=== PATIENT | female | born 1975 | race Asian ===

== ENCOUNTER → 2024-04-23 08:26 | Outpatient (REF) | payer OTHER, SELFPAY | LOC: HWRAD 08:26 | PROVIDERS: ATTENDING PHYSICIAN Nurse Practitioner Primary Care; FAMILY PHYSICIAN Family Medicine | DX: D75.839 Thrombocytosis, unspecified (principal); E61.1 Iron deficiency; D50.0 Iron deficiency anemia secondary to blood loss (chronic) | CPT/HCPCS: 76700 ==

== ENCOUNTER 2025-04-28 19:47 | Inpatient (IN) | payer OTHER, SELFPAY ==
[2025-04-28] VITALS (14 sets, daily range): BP systolic 86–119; BP diastolic 64–83; BMI 28.4
[2025-04-28 12:55] LABS: Glucose - Point of Care 223 mg/dl (70-99)
--- NOTE | 2025-04-28 13:24 | ED.GENMED ---
History of Present Illness
General
Chief Complaint: Cold/Flu/URI Symptoms
Time Seen by Provider: 04/28/25 13:04
History of Present Illness
History of Present Illness:
FOCUSED PAST MEDICAL HISTORY
- High blood pressure, hyperlipidemia, diabetes
REVIEW OF OLD RECORDS
- The patient had EGD which showed esophagitis with no bleeding in 2021
Note:
CHIEF COMPLAINT(S)
Vomiting and generalized weakness.
HISTORY OF PRESENT ILLNESS
The patient is a 50-year-old female who presents with vomiting and a feeling of weakness. She reports receiving influenza and COVID vaccinations on Sunday. By Sunday morning, she started experiencing feverish sensations, while Sundays symptoms
included fatigue, chills, and sweating. On Sunday, she awoke with back spasms, and last night she experienced multiple episodes of vomiting, both at 4 a.m. and again during a visit to her physicians office at 12:25 p.m. She reports poor oral intake.
The patient notes that while she currently feels weak, the nausea has subsided. She is diabetic but does not regularly monitor her blood glucose levels. Additionally, the patient mentioned not taking her blood pressure medication today.
CHRONIC MEDICAL CONDITIONS SIGNIFICANTLY AFFECTING CARE
The patient has a history of diabetes.
PHYSICAL EXAM
- General: The patient appears generally weak, initial systolic blood pressure of 86
- HEENT: Moist oral mucosa
- Cardiovascular: No murmurs, normal heart rate, regular rhythm, No chest wall tenderness
- Pulmonary: No respiratory distress, breath sounds are clear and equal
- Abdomen: Soft with no peritoneal signs, no tenderness
- Neurologic: Excellent strength all extremities, no coordination deficits
- Psychiatric: Appropriate mental status, normal insight and judgement
- Extremities: Nontender, no edema, moves all extremities equally
- Skin: No rash, no lesions
PROBLEM LIST
Acute: Vomiting, generalized weakness, back spasms, chills, and sweating.
Chronic: Diabetes.
PLAN
1. Initiate intravenous fluid therapy to address dehydration.
2. Administer antiemetic medication to manage vomiting.
3. Monitor blood pressure closely and consider medication adjustment if hypotension persists.
DIFFERENTIAL DIAGNOSIS
The Differential Diagnosis includes, in no particular order and is not limited to:
1. Viral gastroenteritis
2. Dehydration
3. Hypoglycemia
4. Influenza
5. COVID-19 infection
6. Medication side effects
7. Acute kidney injury due to dehydration
8. Diabetic ketoacidosis
9. Viral upper respiratory tract infection
10. Post-vaccination reaction
RADIOLOGY
- CT shows fatty liver, mild colitis, mild intramural edema in the gallbladder wall
EKG
- Chest x-ray negative
LABS
- White count 13.7, hemoglobin 12.2, sodium 130, glucose 208, A1c 7.9, creatinine 1.4 which is nearly tripled what it was before; lactic 3.7
UPDATE
-SUMMARY OF ENCOUNTER
The patient was seen in the emergency department with symptoms suggestive of an infection, including elevated white blood cell count and kidney function impairment. A CT scan revealed possible inflammation of the ascending colon near the
gallbladder. The patient has a history of fever with unclear etiology, and kidney function issues noted in a prior visit. Intravenous fluids were administered to address kidney function. The possibility of a urinary tract infection was considered,
and antibiotics were prescribed. Given the patients history and current findings, a decision was made to admit the patient for overnight observation.
DISPOSITION
Admit
ASSESSMENT
The patient presents with probable infection, with inflammation noted on CT imaging and elevated white blood cell count suggestive of an inflammatory or infectious process.
EMERGENCY TREATMENTS ADMINISTERED
Intravenous fluids were administered to improve kidney function. Antibiotics were started to manage the suspected infection.
PLAN
Admit for overnight observation to monitor response to treatment and further evaluate potential underlying causes of symptoms. Consider adding a tick-borne disease panel to explore any possible tick-borne illness.
INDEPENDENT REVIEW OF LABS AND INTERPRETATION OF TESTS
My independent review of the CBC indicates leukocytosis. The review of the renal function shows impaired kidney function compared to previous records.
MEDICATION RECONCILIATION
Antibiotics administered for suspected urinary tract infection.
MEDICAL DECISION MAKING
- Complexity of Data Reviewed: Chronic conditions affecting care. Differential diagnosis includes viral gastroenteritis, dehydration, hypoglycemia, influenza, COVID-19 infection, medication side effects, acute kidney injury due to dehydration,
diabetic ketoacidosis, viral upper respiratory tract infection, and post-vaccination reaction.
- Data:
Category 1
- My independent interpretation of the CT scan shows inflammation of the ascending colon near the gallbladder.
Category 3
- Discussion of management with an infectious disease specialist was considered to determine the appropriate antibiotic regimen.
DIAGNOSIS
- Sepsis
- Acute kidney injury, unspecified (N17.9)
- Inflammation of the ascending colon (K52.9)
Past History
Past History
ED Past Medical History: None
Social History
Personal:
Living: with family
Phy Exam
Physical Exam
Physical Exam:
See HPI
Course
Orders/Labs/Results
Orders:
Orders
04/28/25 13:04
0.9% Sodium Chloride 1000 ml [Nss] 1,000 ml IV BOLUS
04/28/25 13:05
0.9% Sodium Chloride 1000 ml [Nss] 1,000 ml IV BOLUS
04/28/25 13:36
Ondansetron Injectable [Zofran] 4 mg IV NOW STA
CR Chest - 2 Views Urgent
Comment:
Reason For Exam: fevers hypotension
04/28/25 13:38
Complete Blood Count/With Diff Urgent
Comprehensive Metabolic Panel Urgent
HCG, Serum Qualitative Screen Urgent
Comment: ADD ON
Hemoglobin A1c [Glycohemoglobin (HgbA1c)] Urgent
Lactic Acid Q4H
Comment: CANCEL 2nd LACTIC ACID IF 1st LACTIC ACID IS LESS THAN 2
Lipase Urgent
Manual Differential Urgent
Blood Culture Q30M
ERON Source: Blood/Venous
Specimen Description:
04/28/25 14:23
COVID-19 Antigen Urgent
Source: Nasal Swab
Influenza A+B Rapid Molecular Urgent
ERON Source: Nasal Swab
Specimen Description:
04/28/25 14:31
Blood Culture Q30M
ERON Source: Blood/Venous
Specimen Description:
04/28/25 16:00
Add On- LAB Urgent
Tests Added?: hcg screen
04/28/25 16:01
CT Abd/pelvis W Iv Cont Urgent
Comment:
Reason For Exam: sepsis, N/V, f/c
04/28/25 16:44
Lactic Acid Q4H
Comment: CANCEL 2nd LACTIC ACID IF 1st LACTIC ACID IS LESS THAN 2
Urinalysis Reflex To Culture Urgent
Date Specimen was Collected: 04/28/25
Time Specimen was Collected: 16:03
Urine Microscopic Reflex Cult Urgent
Urine Culture Urgent
ERON Source: U
Specimen Description:
Date Specimen was Collected: 04/28/25
Time Specimen was Collected: 16:03
04/28/25 18:36
0.9% Sodium Chloride 1000 ml [Nss] 1,000 ml IV BOLUS
04/28/25 18:37
0.9% Sodium Chloride 250 ml [Nss] 250 ml IV BOLUS
04/28/25 18:40
CefTRIAXone [Rocephin] 1,000 mg IV NOW STA
04/28/25 18:44
Hepatitis A IgM Antibody Urgent
Hepatitis B Core Ab, IgM Urgent
Hepatitis B Surface Antibody Urgent
Hepatitis B Surface Antigen Urgent
Hepatitis C Antibody Urgent
04/28/25 18:47
Add On- LAB Urgent
Tests Added?: ehrlichiosis, babesiosis, lyme, anaplasmosis
04/28/25 19:22
US Abdomen Complete/Upper Urgent
Comment:
Reason For Exam: gallbladder wall edema
04/28/25 19:26
Ehrlichia/Anaplasma by PCR [S] Routine
Comment: [facility] #[id number]
Lyme Progressive Routine
Blood Parasites Routine
ERON Source: B
Specimen Description:
04/28/25 19:28
Piperacillin/Tazo 3.375 Gram [Zosyn] 3.375 gram in 50 ml IV NOW
Abnormal Lab Results
04/28/25 04/28/25 04/28/25
12:53 13:38 16:44
WBC 13.7 H 10^3/uL
(4.8-10.8)
MCHC 31.8 L g/dL
(33.0-37.0)
Abs Neuts (Manual) 12.8 H 10^3/uL
(1.4-6.5)
Band Neutrophils 25 H %
(0-3)
Lymphocytes (Manual) 1 L %
(20-51)
Monocytes (Manual) 1 L %
(2-9)
Sodium 130 L mmol/L
(135-145)
Chloride 93 L mmol/L
(98-107)
BUN 23 H mg/dl
(7-17)
Creatinine 1.4 H mg/dL
(0.6-1.0)
Glucose 208 H mg/dl
(70-99)
Hemoglobin A1c 7.9 H %
(4.0-5.6)
Lactic Acid 3.7 H mmol/L 2.8 H mmol/L
(0.7-2.0) (0.7-2.0)
Total Bilirubin 1.9 H mg/dl
(0.2-1.3)
AST 126 H U/L
(14-36)
ALT 104 H U/L
(0-35)
Ur Occult Blood Reflex 2+ A
(Negative)
Urine WBC (Reflex) 30-40 A /HPF
(0-5)
Urine Bacteria (Reflex) Moderate A
(Negative)
Urine Yeast Moderate A
(Negative)
Urine Albumin (Reflex) 1+ A
(Neg - Trace)
POC Glucose 223 H mg/dl
(70-99)
04/28/25 13:38
04/28/25 13:38
Vital Signs
Initial and Last Documented VS:
Initial Vital Signs
Temp Pulse Resp BP Pulse Ox
36.4 C 89 18 97/64 100
04/28/25 12:44 04/28/25 12:44 04/28/25 12:44 04/28/25 12:44 04/28/25 12:44
Last Documented Vital Signs
Temp Pulse Resp BP Pulse Ox
37.0 C 86 20 119/82 99
04/28/25 18:51 04/28/25 18:51 04/28/25 18:51 04/28/25 18:51 04/28/25 18:51
*Pulse Oximetry
SaO2: 100
Oxygen Mode of Delivery: Room air
Patient hypoxic: no
*Critical Care Note
Total Time (30-74mins, 75-104mins- exclusive of procedures): Not Applicable
ED Attending Note
-
Portions of this chart may have been created with voice recognition software.� Occasional wrong word or��sound alike� substitutions may have occurred due to the inherent limitations of voice recognition software.
Discharge Plan
Departure
Patient Disposition: Admit
Date of Disposition: 04/28/25
Time of Disposition: 18:43
Presentation/result/management discussed w/ accepting MD/DO: Hospitalist
Discharge Problem:
Sepsis
Prescriptions:
No Action
Hydroxychloroquine
200 mg PO DAILY
metformin 500 MG tablet
500 mg PO BID@0800,1700
hydrochlorothiazide 25 MG tablet
25 mg PO DAILY
atorvastatin 10 mg Tablet
10 mg PO DAILY
irbesartan 150 mg Tablet
150 mg PO DAILY
Referrals:
Queenie Coley DO [Family Provider, Internal Medicine]
Interventions
Interventions:
*Risk Screen - Suicide Last Done: 04/28/25 12:42
*General Assessment Last Done: 04/28/25 12:44
*Neglect/Abuse Screening Last Done: 04/28/25 14:12
*ED- Fall Risk Assessment Last Done: 04/28/25 14:12
*ED COVID-19 Vaccine History Last Done: 04/28/25 14:12
*ED Influenza Vaccine History Last Done: 04/28/25 14:12
ED- Pulmonary Assessment Last Done: 04/28/25 14:12
Discharge Date and Time
Print Language: SLOVAK
[2025-04-28] MEDS: NSS 1000 IV ×3 (14:15→20:58)
[2025-04-28 14:16] LABS: Hematocrit 38.4 % (37.0-47.0); Hemoglobin 12.2 g/dL (12.0-16.0); Mean Corp Hgb Conc. 31.8 g/dL (33.0-37.0); Mean Corpuscular Volume 86.9 fL (81.0-99.0); Platelet Count 292 10^3/uL (130-400); Red Cell Dist. Width 13.4 % (11.5-14.5)
[2025-04-28 14:22] LABS: ALT (SGPT) 104 U/L (0-35); AST (SGOT) 126 U/L (14-36); Albumin 3.9 g/dl (3.5-5.0); Alkaline Phosphatase 60 U/L (38-126); Blood Urea Nitrogen 23 mg/dl (7-17); Calcium 9.1 mg/dl (8.4-10.2); Carbon Dioxide 28 mmol/L (22-30); Chloride 93 mmol/L (98-107); Estimated Creatinine Clearance 45 ml/min; Glucose 208 mg/dl (70-99); Lipase 49 U/L (23-300); Potassium 4.0 mmol/L (3.5-5.1); Sodium 130 mmol/L (135-145); Total Protein 6.8 g/dl (6.3-8.2); eGFR 46.12
[2025-04-28] MEDS: ZOFRAN 4 MG IV (14:26)
[2025-04-28 15:01] LABS: Glycohemoglobin (HgbA1c) 7.9 % (4.0-5.6)
[2025-04-28 15:07] LABS: COVID-19 Antigen Negative (Negative)
[2025-04-28 15:19] LABS: Absolute Neutrophils -Man Diff 12.8 10^3/uL (1.4-6.5)
[2025-04-28 15:23] LABS: Normal RBC Morphology Yes; Platelets Checked Yes; Total Cells Counted 100
[2025-04-28 16:57] LABS: Urine Character Clear (Clear)
[2025-04-28 17:16] LABS: Urine Squamous Cell 21-25 /LPF (Few)
[2025-04-28 17:17] LABS: Urine Red Blood Cell 0-2 /HPF (0-2); Urine White Cell 30-40 /HPF (0-5)
[2025-04-28 17:20] LABS: HCG, Serum Qualitative Screen Negative
[2025-04-28] MEDS: ROCEPHIN 1000 MG IV (18:44)
[2025-04-28] MEDS: NSS 250 IV (18:44)
--- NOTE | 2025-04-28 18:55 | HPS.HSE ---
Addendum entered and electronically signed by Briana Galo MD 04/28/25 21:37:
This is an addendum to H&P written by Kavitha Holloway on 04/28/2025. �Patient seen and examined independently with AUTHORIZATION MANAGER.
50-year-old female past medical history of rheumatoid arthritis, diabetes, hypertension, presenting with vomiting and weakness. �Developed chills and sweating and fatigue for past 2 to 3 days. �Received COVID-vaccine 4 days ago. �Multiple episodes
of vomiting. �No diarrhea.
Vital signs show heart rate up to 113.
Labs show leukocytosis. �Sodium of 130. �Creatinine of 1.4. �Blood sugar 208. �Lactic acid 3.7. �Mild transaminitis in 100s. �Urinalysis shows 30-[address] abdomen pelvis shows severe diffuse hepatic steatosis and mild hepatomegaly. �Mild intramural edema in the gallbladder wall. �Mild colitis in the ascending colon. �Chest x-ray shows no acute process.
Patient with sepsis secondary to likely acute cholecystitis, less likely ascending colitis. N.p.o., IV fluids, Zosyn, check abdominal ultrasound. �General surgery consulte. Hepatitis serologies pending. �CAROLYN secondary to sepsis and prerenal GI
losses. �Hold nephrotoxic medications and diabetic medications.
Original Note:
Family Physician
-
Family Physician: Queenie Coley DO
Chief Complaint
-
Fever, chills, right upper quadrant pain, hypotension
History of Present Illness
50-year-old female complaining of vomiting and weakness. She reports receiving influenza and COVID vaccinations on Sunday 4 days ago. The next day Sunday morning she started to experience feverish sensations. She reports going to a mandaeism with
her family where they ate the same meal no one else became sick., However she felt worse when she came home began to lay in bed. She developed worsening fatigue, chills, sweating on Sunday. Yesterday she awoke with back spasms in the thoracic
area and in the evening experienced multiple episodes of vomiting continuing into today. She reports being seen yesterday evening telehealth told to take Advil and Tylenol which she vomited up. She went to her PCP this morning around 1140 and was
sent to ER for evaluation. In the ER she presented with blood pressure of 86/68, WBC 13 with 25% bandemia, CT showing gallbladder wall edema, ascending colitis and hepatic steatosis. She has past medical history of hypertension, hyperlipidemia DM
2, rheumatoid arthritis, bacteremia of unclear source 2020
Medical History
Past Medical History
Past Medical History: Reports Other
Additional Past Medical History:
hypertension
hyperlipidemia
DM
rheumatoid arthritis.
Past Surgical History: Reports
Social History
Tobacco: Non-smoker
Alcohol: None
Personal:
Living: With Family
Employment: Employed
Family History
Family History: Not pertinent
Allergies / Home Medications
Allergies reflects when Allergies were last updated in [employer].
Home Medications with original date entered in [employer]
Allergy/Medication List:
Allergies
Allergy/AdvReac Type Severity Reaction Status Date / Time
No Known Allergies Allergy Verified 04/28/25 12:45
Home Medications
Hydroxychloroquine 200 mg PO DAILY Autoimmune disorder 06/06/16
hydrochlorothiazide 25 mg tablet 25 mg PO DAILY Blood pressure 02/11/21
metformin 500 mg tablet 500 mg PO BID@0800,1700 Diabetes 02/11/21
atorvastatin 10 mg tablet 10 mg PO DAILY 04/28/25
irbesartan 150 mg tablet 150 mg PO DAILY 04/28/25
Review of Systems
-
History Source: Patient
A 12 point ROS was completed and negative except as noted: Yes
Constitutional: Reports Fever, Fatigue and Chills
EENT: Denies Sore Throat or Mouth Swelling
Respiratory: Denies Cough or Trouble Breathing
Cardiac: Denies Chest Pain, Diaphoresis, Palpitations or Syncope
Abdomen/GI: Reports Abdominal Pain (Right upper quadrant), Nausea and Vomiting; Denies Diarrhea or Constipated
: Denies Dysuria, Frequency, Flank Pain, Incontinence or Difficulty Voiding
Musculoskeletal: Denies Joint Pain
Skin: Denies Itching or Rash
Neurological: Reports Weakness; Denies Dizzy or Headache
Endocrine: Reports No Symptoms
Hematologic/Lymphatic: Reports No Symptoms
Psych: Reports Calm
Physical Exam
Vital Signs
Vital Signs
Temp Pulse Resp BP Pulse Ox
98.6 F 86 20 119/82 99
04/28/25 18:51 04/28/25 18:51 04/28/25 18:51 04/28/25 18:51 04/28/25 18:51
Physical Exam
General: Conversant, Pain and Chills
HEENT: NormoCephalic, Anicteric, Moist mucous membranes, PERRLA, Muniz Conjunctivae and No Ptosis
Respiratory: Clear; No Wheezes, Rales or Rhonchi
Cardiac: S1/S2 and Regular Rhythm; No Murmur, Rub, Gallop or Peripheral Edema
Breast: Deferred by me
GI: Soft, Non Distended and Tender (ruq)
Rectal: Deferred by Provider
Genito-urinary: Deferred by me
Musculoskeletal: No Clubbing, No Cyanosis and No Edema
Skin: Warm and Dry; No Rash
Neuro: AO x 3, No Motor Deficits and Nonfocal/grossly intact; No No Sensory Deficits, Slurred Speech, Facial Droop, Tremors or Sedated
Psych: Calm
Laboratory Results
-
04/28/25 13:38
04/28/25 13:38
Laboratory Results
Lactic Acid 2.8 mmol/L (0.7-2.0) H 04/28/25 16:44
Total Bilirubin 1.9 mg/dl (0.2-1.3) H 04/28/25 13:38
AST 126 U/L (14-36) H 04/28/25 13:38
ALT 104 U/L (0-35) H 04/28/25 13:38
Alkaline Phosphatase 60 U/L (38-126) 04/28/25 13:38
Lipase 49 U/L (23-300) 04/28/25 13:38
Impression/Plan
-
Impression/plan:
Admit to IMU
#Septic shock secondary to Acute choleycystitis with less likely ascending colon colitis
WBC 13.7 with 25% bandemia, HR 104, 99.1, lactic acid 2.8
BP 86/60> 106/79 post 2.5 L IV NSS
-Hold irbesartan 150 mg daily due to hypotension
Patient reports history of hep B vaccination AprilMay 2021, October 2021
-- Iv Zosyn
-IV zofran , phenergen breakthru vomiting
- Iv NSS 100 cc/hr
-blood cultures X2
- Will keep patient n.p.o.
-IV Offermev of as patient spiked 101 temp at 2120
- Consult surgery Dr. Russell aware
CT abdomen pelvis with IV contrast:
1. SEVERE DIFFUSE HEPATIC STEATOSIS and mild hepatomegaly.
2. Mild intramural edema in the gallbladder wall.
3. Mild colitis in the ascending colon.
4. 2.3 cm partially collapsed corpus luteal cyst in the right ovary.
5. 1.4 cm leiomyoma in the uterine fundus.
6. Moderate discogenic degenerative disease and facet joint arthrosis at L4/L5.
#CAROLYN 2/2 to GI losses
Creat 1.4/bun 23 prior 0.58 06/27/2021
-Hold HCTZ, metformin 500 mg twice daily
#Transaminitis likely secondary to diffuse hepatic steatosis
AST 126, ALT 104 will follow CMP
-Hepatitis panel pending
-Hold atorvastatin in setting of transaminitis
#Hyponatremia�mild
NA 130
follow cmp
#DM 2
HgbA1c 7.9
-Hold metformin in setting of CAROLYN
-Accu-Cheks with SSI
#Rheumatoid arthritis
Continue Plaquenil
#HLD
Hold atorvastatin 10 mg daily in setting of transaminitis
DVT prophylaxis
Subcu heparin
Full code
[2025-04-28] MEDS: ZOSYN 50 IV (19:46)
[2025-04-28] MEDS: HEPARIN 5000 UNITS SC (20:57)
[2025-04-28] MEDS: OFIRMEV 100 IV (22:24)
[2025-04-28 22:39] LABS: Glucose - Point of Care 125 mg/dl (70-99)
[2025-04-28] MEDS: PLAQUENIL 200 MG PO (23:16)
--- NOTE | 2025-04-28 23:23 | PTCARENOTE ---
Received pt from ED via stretcher. AAOx3; diaphoretic, flushed skin. Febrile on arrival. Skin fully intact. No c/o nausea at this time; strict NPO per orders. Notified TANK SHOP SUPERVISOR of temperature of 101.0 but not able to take PO Tylenol (per NPO
orders). Ofirmev ordered and administered. NSS running at 100 ml/hr. Resting in bed with call chavez in reach.
[2025-04-29] VITALS (24 sets, daily range): BP systolic 82–159; BP diastolic 50–100
--- NOTE | 2025-04-29 02:18 | DOWNTIME ---
There was a [employer] Client Transition Specialist Downtime on 04/29/2025 from 0100 to 04/29/2025 at 0215. Downtime documentation of patient's care, including medication administrations, has been reconciled in the electronic record per guidelines. Refer to the
patient's paper chart under the miscellaneous tab to see printed paper medication records and downtime forms.
[2025-04-29] MEDS: ZOSYN 50 IV ×4 (03:02→19:46)
[2025-04-29 06:33] LABS: Hematocrit 34.9 % (37.0-47.0); Hemoglobin 11.4 g/dL (12.0-16.0); Mean Corp Hgb Conc. 32.7 g/dL (33.0-37.0); Mean Corpuscular Volume 86.2 fL (81.0-99.0); Platelet Count 288 10^3/uL (130-400); Red Cell Dist. Width 13.5 % (11.5-14.5)
[2025-04-29 06:48] LABS: ALT (SGPT) 141 U/L (0-35); AST (SGOT) 123 U/L (14-36); Albumin 3.0 g/dl (3.5-5.0); Alkaline Phosphatase 64 U/L (38-126); Blood Urea Nitrogen 14 mg/dl (7-17); Calcium 8.5 mg/dl (8.4-10.2); Carbon Dioxide 27 mmol/L (22-30); Chloride 104 mmol/L (98-107); Estimated Creatinine Clearance 104 ml/min; Glucose 128 mg/dl (70-99); HDL Cholesterol 28 mg/dl; LDL Cholesterol, Calculated 38 mg/dl; Potassium 3.2 mmol/L (3.5-5.1); Sodium 135 mmol/L (135-145); Total Protein 5.6 g/dl (6.3-8.2); Very Low Density Lipoprotein 28 mg/dl (0-30); eGFR > 60.00
[2025-04-29] MEDS: NSS 1000 IV ×2 (08:10→18:11)
[2025-04-29 08:11] LABS: Absolute Neutrophils -Man Diff 10.3 10^3/uL (1.4-6.5)
[2025-04-29] MEDS: HEPARIN SC ×3 (08:11→19:53)
[2025-04-29 08:12] LABS: Normal RBC Morphology Yes; Platelets Checked Yes; Total Cells Counted 100
[2025-04-29] MEDS: PLAQUENIL 200 MG PO ×2 (08:12→12:51)
--- NOTE | 2025-04-29 08:45 | W.PN.HOSP.TC ---
Today's Communication/Plan
-
IV fluids. IV antibiotics.
Assessment / Plan
Assessment / Plan
Physical exam:
General: Acutely ill
HEENT: Normocephalic, Atraumatic and Dry Mucous Membranes
Respiratory: Clear to Auscultation; Negative Wheezes, Rales or Rhonchi
Cardiac: Regular Rhythm and S1/S2
GI: Soft, tender and Nondistended
Musculoskeletal: No Clubbing, No Cyanosis and No Edema
Neuro: Awake, Alert and Oriented, no neurological deficit
Psych: Calm
A/P:
Suspected septic shock (could have been also hypovolemic shock):
GI versus source vs ?? Vaccines immune reaction
Seen CT scan of the abdomen and ultrasound
Continue IV antibiotics, IV Zosyn
Continue IVF
Follow-up cultures
Surgery consulted and started on clear liquid diet
GI consult as recommended by surgery
WBC 13.7--> 12.9
CAROLYN:
Improving
Continue IV fluid
Avoid nephrotoxic
Monitor renal function in a.m.
Hyponatremia:
Improving
Rheumatoid arthritis:
Continue hydroxychloroquine-changed to 400 mg alternating with 200 mg every other day and she takes it at home.
Elevated LFTs:
Continue to trend
Diabetes mellitus:
Insulin sliding scale
Hold all oral hypoglycemics
Update hemoglobin A1c
Hypertension:
Hold antihypertensive due to hypotension
Hyperlipidemia:
Hold statin
DVT prophylaxis:
Heparin SQ
Code status:
Full code
Total time spent on today's encounter was 52 minutes which included time spent in counseling the patient/family regarding diagnosis and treatment plan as listed above, goals of care, and symptom management. Case was discussed with nursing staff,
specialists, and care coordinators/case management. All labs and imaging personally reviewed by me. Remainder the time spent in detailed review of previous records, lab data, imaging, and other medical provider documentation.
Anticipated Discharge: > 48 hours
Subjective/Interval History
-
Date of Service: April 29, 2025
Patient with less nausea, no vomitting. Still c/o abd pain. Afebrile
Objective Data
-
Labs:
Laboratory Results
04/29/25
06:07
WBC 12.9 H
Hgb 11.4 L
Hct 34.9 L
Plt Count 288
Sodium 135
Potassium 3.2 L
Chloride 104
Carbon Dioxide 27
BUN 14
Creatinine 0.6
Glucose 128 H
Calcium 8.5
Total Bilirubin 1.3
AST 123 H
ALT 141 H
Alkaline Phosphatase 64
Vital Signs:
Vital Signs
Temp Pulse Resp BP Pulse Ox
100.0 F 103 30 104/67 97
04/29/25 08:25 04/29/25 00:00 04/29/25 00:00 04/29/25 00:00 04/29/25 08:30
[2025-04-29] MEDS: KCL ELIXIR 40 MEQ PO (11:35)
--- NOTE | 2025-04-29 11:59 | CON.GS ---
Consultation
-
Date/Time Consultation Performed: 04/29/25
Requesting Provider: Amie
Performing Provider: Drew
Reason for Consultation: imaging findings
Medical History
-
Chief Complaint: n/v
History of Present Illness:
Pt with acute onset flu like symptoms that began a day after receiving flu and covid shots. Began with nausea, progressed to vomiting and weakness. Low grade temps at home with sweats and chills. Back pain developed after this, she is unsure if 2/2
chronic back issue and prolonged bedrest by that point. She denies abd pain at any point. Had been taking ibuprofen and tylenol at home with some improvement. CT showed some fluid about the gb prompting GS consultation. She has RA and takes
hydroxychloroquine
Past Medical History
Past Medical History: Other (hypertension hyperlipidemia DM rheumatoid arthritis.)
Social History
Tobacco: Non-Smoker
Alcohol: None
Personal:
Living: With Family
Employment: Employed
Family History
Family History: Reviewed & Noncontributory
Allergies / Home Medications
Allergy/AdvReac Type Severity Reaction Status Date / Time
No Known Allergies Allergy Verified 04/28/25 12:45
�Medication �Instructions �Recorded �Confirmed �Type
Hydroxychloroquine 200 mg PO DAILY Autoimmune disorder 06/06/16 04/28/25 History
hydrochlorothiazide 25 mg tablet 25 mg PO DAILY Blood pressure 02/11/21 04/28/25 History
metformin 500 mg tablet 500 mg PO BID@0800,1700 Diabetes 02/11/21 04/28/25 History
atorvastatin 10 mg tablet 10 mg PO DAILY High Cholesterol 04/28/25 04/28/25 History
irbesartan 150 mg tablet 150 mg PO DAILY Blood Pressure 04/28/25 04/28/25 History
Review of Systems
-
A 10 point review of systems was completed, and was negative except as per HPI.
Physical Exam
Vital Signs
Temp Pulse Resp BP Pulse Ox
99.3 F 95 27 116/80 97
04/29/25 11:17 04/29/25 09:00 04/29/25 09:00 04/29/25 08:00 04/29/25 09:11
04/28/25 04/29/25 04/30/25
06:59 06:59 06:59
Actual Weight 70.307 kg
Body Mass Index (BMI) 28.4
Lab Results
04/29/25 06:07
04/29/25 06:07
WBC 12.9 10^3/uL (4.8-10.8) H 04/29/25 06:07
Hgb 11.4 g/dL (12.0-16.0) L 04/29/25 06:07
Hct 34.9 % (37.0-47.0) L 04/29/25 06:07
Plt Count 288 10^3/uL (130-400) 04/29/25 06:07
Physical Exam
General: Well Developed, Well Nourished and No Apparent Distress
HEENT: Normocephalic and Anicteric
GI: Soft, Non Distended and Tender (mild epigastric ttp)
Musculoskeletal: No Clubbing and No Cyanosis
Skin: Warm and Other (diaphoretic)
Neuro: AO x 3
Psych: Calm
Data Reviewed
-
CT Scan: Image Personally Visualized and interpreted, Report Reviewed by me, Discussed with Physician and Discussed with Patient
Ultrasound: Image Personally Visualized and interpreted, Report Reviewed by me and Discussed with Patient
Labs: Labs Reviewed by me and Discussed with Patient
Assessment / Plan
-
50F with suspected vaccine reaction
101.7F Tmax, otherwise VSS
WBC trending down
Mild elevation AST/ALT
CT with mild edema surrounding gallbladder, US with no gallstones, no stigmata of ACC
Plan:
No indication nor plan for surgical intervention
Rec ID consult
Consider GI consult if n/v does not improve
Pls call with ?s
[2025-04-29 12:08] LABS: Hepatitis B Surface Antigen Negative (Negative)
--- NOTE | 2025-04-29 12:36 | PTCARENOTE ---
pt tolerating clear liquid diet. pt did not want am heparin dose and stated she will increase mobility. ambulated around unit x 5 . bp stable and pt denies weakness or dizziness. denies nausea. no complaints at this time. sinus rythym on monitor.
sats in 90s on room air. pt occasionally has dry cough.
[2025-04-29 12:57] LABS: Hepatitis C Antibody Negative (Negative)
--- NOTE | 2025-04-29 14:30 | CON.GI ---
Consultation
-
Date/Time Consultation Requested: 04/29/25
Date/Time Consultation Performed: 04/29/25
Requesting Provider: Dr. Lujan
Performing Provider: Dr. Palomino
Reason for Consultation: Colitis, elevated LFTs
Medical History
Chief Complaint / HPI
Chief Complaint: N/V, sepsis
History of Present Illness:
Edwin Ortega is a 50 y.o. female with pmhx RA, DM2, HTN admitted with 2-3 days of chills, N/V and generalized weakness found to be septic, source unclear at this time. She reports getting both the influenza and COVID vaccines on Sunday, otherwise,
no travel or sick contacts. C/f GI source due to imaging findings of mild colitis in the ascending colon. She denies any abdominal pain or diarrhea. She reports last BM was yesterday, was a normal, well-formed stool. Currently, she is feeling much
better than upon admission. She follows outpatient with Dr. Singer, had a history for DAVID in 2022 which was unremarkable for GI source of anemia.
WBC 13.7 --> 12.9
Lactate 2.8 --> 1.6
Tbili 1.3 AST 123, ALT 141, Alk phos 64
UA 2+ blood, 30-40 WBCs
HAV IgM pending
HBsAg neg, HBcAb IgM pending, HBsAb indeterminate, HCV Ab neg
CT A/P showed severe diffuse hepatic steatosis and mild hepatomegaly. Mild intramural edema in the GB wall. Mild colitis in the ascending colon.
Past Medical History
Past Medical History: HTN, Hypercholesterolemia, NIDDM and Other (rheumatoid arthritis)
Past Surgical History: Other ()
Social History
Tobacco: Non-Smoker
Alcohol: None
Living: With Family
Family History
Family History: Reviewed & Not Pertinent
Allergies / Home Medications
Allergy/AdvReac Type Severity Reaction Status Date / Time
No Known Allergies Allergy Verified 04/28/25 12:45
�Medication �Instructions �Recorded
Hydroxychloroquine 200 mg PO DAILY Autoimmune disorder 06/06/16
hydrochlorothiazide 25 mg tablet 25 mg PO DAILY Blood pressure 02/11/21
metformin 500 mg tablet 500 mg PO BID@0800,1700 Diabetes 02/11/21
atorvastatin 10 mg tablet 10 mg PO DAILY High Cholesterol 04/28/25
irbesartan 150 mg tablet 150 mg PO DAILY Blood Pressure 04/28/25
Review of Systems
-
History Source: Patient
All other systems: A 12 pt ROS was Negative except as stated above in HPI
Vital Signs
Temp Pulse Resp BP Pulse Ox
99.3 F 95 27 116/80 97
04/29/25 11:17 04/29/25 09:00 04/29/25 09:00 04/29/25 08:00 04/29/25 09:11
Physical Exam
Exam
General: Well Developed, Well Nourished and No Apparent Distress
GI: Soft, Non Tender, Non Distended and Normal Bowel Sounds
Results
WBC 12.9 10^3/uL (4.8-10.8) H 04/29/25 06:07
Hgb 11.4 g/dL (12.0-16.0) L 04/29/25 06:07
Hct 34.9 % (37.0-47.0) L 04/29/25 06:07
MCV 86.2 fL (81.0-99.0) 04/29/25 06:07
Plt Count 288 10^3/uL (130-400) 04/29/25 06:07
Sodium 135 mmol/L (135-145) 04/29/25 06:07
Potassium 3.2 mmol/L (3.5-5.1) L 04/29/25 06:07
Chloride 104 mmol/L (98-107) 04/29/25 06:07
Carbon Dioxide 27 mmol/L (22-30) 04/29/25 06:07
BUN 14 mg/dl (7-17) 04/29/25 06:07
Creatinine 0.6 mg/dL (0.6-1.0) 04/29/25 06:07
Calcium 8.5 mg/dl (8.4-10.2) 04/29/25 06:07
Total Bilirubin 1.3 mg/dl (0.2-1.3) 04/29/25 06:07
AST 123 U/L (14-36) H 04/29/25 06:07
ALT 141 U/L (0-35) H 04/29/25 06:07
Alkaline Phosphatase 64 U/L (38-126) 04/29/25 06:07
Lipase 49 U/L (23-300) 04/28/25 13:38
Hep Bs Antibody Indeterminate 04/28/25 18:44
Hepatitis C Antibody Negative (Negative) 04/28/25 18:44
Diagnostic Image Results:
Prior GI Procedures:
EGD: Upper endoscopy May 2022 LA grade a esophagitis, 1 cm hiatal hernia, stomach normal biopsies taken, duodenum normal, biopsies taken. Biopsies showed normal small bowel, minimal chronic inflammation with no H. pylori in the stomach.
Recommend to start omeprazole 40 daily.
Colonoscopy: Colonoscopy November 2021 terminal ileum normal. 3 hyperplastic 7 sessile polyps in the rectum, sigmoid, transverse colon 1 to 2 mm in size removed with jumbo. Internal hemorrhoids medium grade 1. Pathology showed transverse colon polyp
tubular adenoma other 2 were hyperplastic. Recall recommended 7 years.
Capsule July 2022 normal.
Assessment / Plan
-
50 y.o. female admitted with sepsis like picture, unclear source. CT showing mild colitis in the ascending colon but no sx consistent with this finding.
-symptomatically improving
-on broad spectrum abx
-no N/V currently; denies any abdominal pain or diarrhea at any point. I do not feel this 'colitis' is her source of current presentation as clinically, this does not correlate
-LFTs improving, unclear baseline LFTs, has fatty liver, f/u remaining hepatitis labs and infectious studies; possibly elevated in setting of sepsis vs. DILI vs. autoimmune given history of RA
-BCx NGTD; parasite smear prelim neg
-Fatty liver-- prior fibroscan 04/2021 with no fibrosis, should have repeat fibrosis assessment as outpatient, need to see where her baseline LFTs are
Data Reviewed
-
Old Records: Reviewed
-
-
Thank you for consultation and allowing me to participate in the patient's care. Please call the tongue and groove machine feeder GI physician during the after hours with any questions or concerns.
[2025-04-29] MEDS: TYLENOL 650 MG PO (14:53)
--- NOTE | 2025-04-29 16:35 | CM ---
Initial Assessment Completed By CARRIE Peterson.
Patient lives independently in a 2 Story House with bathroom on both levels, uses No DME, No Respiratory devices, No past VN/PT. and No Inpatient Rehab, only Outpatient years ago.
PCP: Amrita Coley
Pharmacy: [facility]
Patient has transportation home when ready. PLAN: Anticipate Home No Needs
[2025-04-29] MEDS: NOVOLOG FLEXPEN-LOW RESISTANCE SC (17:19)
[2025-04-29 17:29] LABS: Glucose - Point of Care 108 mg/dl (70-99)
--- NOTE | 2025-04-29 17:51 | CON.ID ---
Consultation
-
Date/Time Consultation Requested: 04/29/2025 1612
Date/Time Consultation Performed: 04/29/2025 1700
Requesting Provider: Dr. Lujan
Performing Provider: Dr. Miranda
Reason for Consultation: Fever
Chief Complaint / Past History
History of Present Illness
Edwin Pichardo is a 50-year-old female being evaluated at the request of Dr. Irene in regards to fever. History is obtained from chart review, along with patient interview. Additional history was obtained from the patient's sister who was present
in the room.
The patient has an underlying history of rheumatoid arthritis (maintained on hydroxychloroquine), DM and fatty liver disease. She reports she was in her usual state of health until approximately 5 days ago when she received the flu and COVID
immunizations. The next day she reported a low-grade fever along with some chills and overall felt exhausted. She spent all of the next day in bed with fatigue. 2 days ago she reports she felt a little bit better, but developed some back spasms
and was taking Tylenol and Advil. Later in the evening she developed episodes of vomiting. The next day (yesterday) she saw her PCP, and continued with vomiting and ultimately was sent to the ER. Workup in the ER revealed leukocytosis with
significant bandemia. She was started on empiric antibiotics. Last evening she developed a fever to 101.7 degrees.
At this time she reports she is feeling slightly better with decreased chills. She denies any headache. She notes some prior sinusitis symptomatology which has now improved.
She denies any recent travel. She notes late last week she was at her alevism where she ate food with her daughter and some other people. No other family developed illness.
Past History
Additional Past Medical History:
RA
DM
HTN
HLD
Fatty liver disease
Additional Past Surgical History:
Allergy History:
No Known Allergies Allergy (Verified 04/28/25 12:45)
Medications Reviewed: Yes
Current Antibiotics:
Zosyn 3.375 gm IV q6h
Social History
Tobacco: Non-Smoker
Alcohol: None
Drug: None
Personal:
Living: With Family
Employment: Employed
Family History
Family History: Not Pertinent
Review of Systems
Vital Signs
Temp Pulse Resp BP Pulse Ox
99.4 F 95 27 116/80 97
04/29/25 17:00 04/29/25 09:00 04/29/25 09:00 04/29/25 08:00 04/29/25 09:11
Physical Exam
Physical Exam
Constitutional: No Acute Distress, Well Developed, Comfortable and Non-toxic
Head: Normocephalic
Eyes: Pupils Equal, Pupils Round, No Conjunctival Hemorrhage and Sclera Anicteric
Oral: No Thrush and No Ulcers
Cardiovascular: Regular Rate and S1/S2; Negative S3/S4
Pulmonary: Clear; Negative Wheezes, Rales or Rhonchi
Gastrointestinal: Soft, Non Tender, Non Distended, Normal Bowel Sounds, No Rebound and No Guarding
Genito-Urinary: Negative CVA Tenderness
Extremities: Edema; Negative Cyanosis or Erythema
Neurological: Awake and Alert
Lab / Diagnostic Study Results
04/29/25 06:07
04/29/25 06:07
Total Counted 100 04/29/25 06:07
Abs Neuts (Manual) 10.3 10^3/uL (1.4-6.5) H 04/29/25 06:07
Segmented Neutrophils 65 % (42-75) 04/29/25 06:07
Band Neutrophils 15 % (0-3) H D 04/29/25 06:07
Lymphocytes (Manual) 8 % (20-51) L 04/29/25 06:07
Eosinophils (Manual) 3 % (0-6) 04/29/25 06:07
Lactic Acid Cancelled 04/29/25 04:00
Ur Squamous Epith Cells /LPF (Few) 04/28/25 16:44
Microbiology Results
Micro:
04/28/25 19:32 Blood Parasites Smear - Final
Blood/Venous
04/28/25 14:31 Blood Culture - Preliminary
Blood/Venous No Growth in 24 hours- Final report to follow
04/28/25 13:38 Blood Culture - Preliminary
Blood/Venous No Growth in 24 hours- Final report to follow
04/28/25 16:44 Urine Culture - Final
Urine
04/28/25 14:23 Influenza Types A & B (EDMUND) - Final
Nasal Swab Negative for Influenza A & B, NAAT
Negative results must be combined with clinical observations
and patient history.
Nucleic Acid Amplification test (NAAT)performed on the
[employer] platform.
Imaging:
04/28/2025 Abdominal ultrasound: severe diffuse hepatic steatosis. No echocardiographic evidence for cholelithiasis or biliary obstruction. Please see full dictation for additional detail.
04/28/2025 CT abdomen/pelvis with IV contrast.: Severe diffuse hepatic steatosis and mild hepatomegaly. Mild intramural edema in the gallbladder wall. Mild colitis in the ascending colon. 1.4 cm leiomyoma in the uterine fundus. Moderate
discogenic degenerative disease and facet joint arthrosis. Please see full dictation for additional detail.
Assessment / Plan
Fever
Nausea/vomiting
Recent vaccination with COVID and flu vaccines
Leukocytosis with significant bandemia
Fatigue/malaise
Elevated LFTs
RA
DM
HTN
HLD
Fatty liver disease
Recommendations:
No clear etiology for fever and other symptomatology. Certainly vaccine reaction remains in the differential vs. passed bile stone?
Overall, patient reports feeling somewhat improved today.
Continue with empiric Zosyn for the present.
Trend LFTs
Monitor white count and temperature curve.
Further recommendations as additional data is returned.
--- NOTE | 2025-04-29 20:31 | PTCARENOTE ---
Assumed care of pt from dayshift RN after change of shift report. pt is aa0x3. making needs known. pt denies nausea or pain at this time. abdomen slightly tender and round. tolerating clear liquids. continent of bowel and bladder, ambulating to the
bathroom with a steady gait. assessment as documented. call light in reach.
[2025-04-29 22:08] LABS: Glucose - Point of Care 88 mg/dl (70-99)
[2025-04-30] VITALS (18 sets, daily range): BP systolic 121–175; BP diastolic 82–109
[2025-04-30] MEDS: TYLENOL 650 MG PO ×4 (00:08→22:42)
[2025-04-30] MEDS: ZOSYN 50 IV ×2 (02:15→08:25)
[2025-04-30] MEDS: NSS 1000 IV (04:45)
[2025-04-30 05:26] LABS: INR 1.21; PT 15.6 Sec (11.4-14.6)
[2025-04-30 05:38] LABS: ALT (SGPT) 113 U/L (0-35); AST (SGOT) 57 U/L (14-36); Albumin 3.1 g/dl (3.5-5.0); Alkaline Phosphatase 78 U/L (38-126); Blood Urea Nitrogen 11 mg/dl (7-17); Calcium 9.0 mg/dl (8.4-10.2); Carbon Dioxide 30 mmol/L (22-30); Chloride 104 mmol/L (98-107); Estimated Creatinine Clearance 104 ml/min; Glucose 106 mg/dl (70-99); Potassium 3.8 mmol/L (3.5-5.1); Sodium 136 mmol/L (135-145); Total Protein 5.8 g/dl (6.3-8.2); eGFR > 60.00
[2025-04-30 05:47] LABS: Hematocrit 36.8 % (37.0-47.0); Hemoglobin 11.9 g/dL (12.0-16.0); Mean Corp Hgb Conc. 32.3 g/dL (33.0-37.0); Mean Corpuscular Volume 88.2 fL (81.0-99.0); Nucleated Red Blood Cells % 0 %; Platelet Count 362 10^3/uL (130-400); Red Cell Dist. Width 13.3 % (11.5-14.5)
[2025-04-30 07:32] LABS: Glucose - Point of Care 99 mg/dl (70-99)
--- NOTE | 2025-04-30 08:17 | W.PN.GI.CBS2 ---
Today's Communication / Plan
-
Symptomatically improving, unclear source. LFTs improving. No sx c/w colitis. GI will sign off, outpatient hepatology and GI f/u. Please call with questions.
Assessment / Plan
-
50 y.o. female admitted with sepsis like picture, unclear source. CT showing mild colitis in the ascending colon but no sx consistent with this finding.
-symptomatically improving
-on broad spectrum abx
-no N/V currently; denies any abdominal pain or diarrhea at any point. I do not feel this 'colitis' is her source of current presentation as clinically, this does not correlate
-LFTs improving, unclear baseline LFTs, has fatty liver, f/u remaining hepatitis labs and infectious studies; possibly elevated in setting of sepsis vs. DILI vs. autoimmune given history of RA
-BCx NGTD; parasite smear prelim neg
-Fatty liver-- prior fibroscan 04/2021 with no fibrosis, she follows with Dr. King, [facility] hepatology.
At this point, no further recommendations from a GI perspective given improving LFTs. I advised her to f/u with hepatology on d/c to confirm LFTs continue to improve as well as GI to discuss outpatient colonoscopy, she sees Dr. Singer.
GI will sign off please call with questions.
Subjective
Subjective
Date of Service: April 30, 2025
Patient seen in follow-up. Continues to endorse improvement in sx. She did have a fever overnight. She tried broth yesterday, felt nauseous but wants to have other clears. No abdominal pain or diarrhea.
Objective
Data Reviewed
Laboratory Data:
Laboratory Results
04/30/25 04:59
04/30/25 04:59
Laboratory Results
PT 15.6 Sec (11.4-14.6) H 04/30/25 04:59
INR 1.21 04/30/25 04:59
Total Bilirubin 1.0 mg/dl (0.2-1.3) 10/23/25 04:59
AST 57 U/L (14-36) H 04/30/25 04:59
ALT 113 U/L (0-35) H 04/30/25 04:59
Alkaline Phosphatase 78 U/L (38-126) 04/30/25 04:59
Lipase 49 U/L (23-300) 04/28/25 13:38
Vital Signs and I&O:
Vital Signs
Temp Pulse Resp BP Pulse Ox
97.7 F 80 45 142/94 99
04/30/25 06:11 04/30/25 06:00 04/29/25 10:00 04/30/25 06:00 04/30/25 06:03
I&O
04/29/25 04/30/25 05/01/25
06:59 06:59 06:59
Intake Total 1620 / 1620
Balance 1620 / 1620
Physical Exam
Physical Exam
HEENT: Anicteric and Moist mucous membranes
GI: Soft, Non Distended, Non Tender and Normal Bowel Sounds
[2025-04-30] MEDS: NOVOLOG FLEXPEN-LOW RESISTANCE SC ×3 (08:24→17:20)
[2025-04-30] MEDS: HEPARIN SC ×2 (08:25→19:34)
[2025-04-30] MEDS: PLAQUENIL 200 MG PO (08:25)
--- NOTE | 2025-04-30 09:25 | PTCARENOTE ---
Pt AAIx3, on tele pack as pt ambulated AROUND THE ROOM. cLEAR LIQ SDIET MEDS GIVEN hEPARIN REFUSED.
--- NOTE | 2025-04-30 11:30 | W.PN.ID1 ---
Date of Service
Date of Service: April 30, 2025
Today's Communication
Continue antibiotics. Transition to oral Augmentin.
Assessment / Plan
Fever
Nausea/vomiting
Recent vaccination with COVID and flu vaccines
Leukocytosis with significant bandemia
Fatigue/malaise
Elevated LFTs
RA
DM
HTN
HLD
Fatty liver disease
Recommendations:
No clear etiology for fever and other symptomatology. ?vaccine reaction ?passed bile stone
Overall, clinically improved.
Narrow to Augmentin for an additional 5 days.
Continue to trend LFTs
Monitor white count and temperature curve.
����������������������������������������������������������
Chief Complaint
-: Fever and Leukocytosis
Subjective / Review of Systems
Patient seen and examined. Reports fever overnight, although temperature curve overall improving. Tmax 100.7
Reports feeling gaseous.
Review of Systems: No Abdominal Pain
Vital Signs / Physical Exam
Vital Signs
Vital Signs
Temp Pulse Resp BP Pulse Ox
98.0 F 80 45 142/94 96
04/30/25 07:07 04/30/25 06:00 04/29/25 10:00 04/30/25 06:00 04/30/25 10:00
Physical Exam
Constitutional: No Acute Distress, Comfortable and Non-toxic
Eyes: Sclera Anicteric
Cardiovascular: S1/S2; Negative S3/S4
Pulmonary: Non Labored
Gastrointestinal: Soft, Non Tender, Non Distended and Normal Bowel Sounds
Extremities: Negative Edema, Cyanosis or Erythema
Neurological: Awake and Alert
Psychological: Calm
Objective Data
Lab Data
Lab Results
04/30/25 04:59
04/30/25 04:59
PT 15.6 Sec (11.4-14.6) H 04/30/25 04:59
INR 1.21 04/30/25 04:59
Estimated Creat Clear 104 ml/min 04/30/25 04:59
Lactic Acid Cancelled 04/29/25 04:00
Total Bilirubin 1.0 mg/dl (0.2-1.3) 04/30/25 04:59
AST 57 U/L (14-36) H 04/30/25 04:59
ALT 113 U/L (0-35) H 04/30/25 04:59
Alkaline Phosphatase 78 U/L (38-126) 04/30/25 04:59
Most recent labs reviewed.
Micro Results:
04/28/25 19:32 Blood Parasites Smear - Final
Blood/Venous
04/28/25 14:31 Blood Culture - Preliminary
Blood/Venous No Growth in 24 hours- Final report to follow
04/28/25 13:38 Blood Culture - Preliminary
Blood/Venous No Growth in 24 hours- Final report to follow
04/28/25 16:44 Urine Culture - Final
Urine
04/28/25 14:23 Influenza Types A & B (EDMUND) - Final
Nasal Swab Negative for Influenza A & B, NAAT
Negative results must be combined with clinical observations
and patient history.
Nucleic Acid Amplification test (NAAT)performed on the
[employer] platform.
Imaging:
04/28/2025 Abdominal ultrasound: severe diffuse hepatic steatosis. No echocardiographic evidence for cholelithiasis or biliary obstruction. Please see full dictation for additional detail.
04/28/2025 CT abdomen/pelvis with IV contrast.: Severe diffuse hepatic steatosis and mild hepatomegaly. Mild intramural edema in the gallbladder wall. Mild colitis in the ascending colon. 1.4 cm leiomyoma in the uterine fundus. Moderate
discogenic degenerative disease and facet joint arthrosis. Please see full dictation for additional detail.
--- NOTE | 2025-04-30 11:34 | W.PN.HOSP.TC ---
Today's Communication/Plan
-
Antibiotics
Assessment / Plan
Assessment / Plan
Physical exam:
General: Acutely ill
HEENT: Normocephalic, Atraumatic and Dry Mucous Membranes
Respiratory: Clear to Auscultation; Negative Wheezes, Rales or Rhonchi
Cardiac: Regular Rhythm and S1/S2
GI: Soft, tender and Nondistended
Musculoskeletal: No Clubbing, No Cyanosis and No Edema
Neuro: Awake, Alert and Oriented, no neurological deficit
Psych: Calm
A/P:
Suspected septic shock (could have been also hypovolemic shock):
GI versus ?Vaccines immune reaction. Could have been a passed stone per ID suggestion. Unlikely colitis per GI.
Seen CT scan of the abdomen and ultrasound
Continue antibiotics but transition IV Zosyn to Augmentin
Stop IVF
Follow-up cultures
Changed to n.p.o. overnight but GI changed back to clear liquid diet today--> will advance to full liquid diet today
GI consulted and ID as recommended by surgery
WBC 13.7--> 11.1
Can transfer out of IMU
CAROLYN:
Improvied and has remained stable
Stop IV fluid
Avoid nephrotoxic
Monitor renal function in a.m.
Hyponatremia:
Improving
Rheumatoid arthritis:
Continue hydroxychloroquine-changed to 400 mg alternating with 200 mg every other day and she takes it at home.
Elevated LFTs:
Trending down
Continue to trend
Diabetes mellitus:
Insulin sliding scale
Hold all oral hypoglycemics
Updated hemoglobin A1c and it is 7.9
Hypertension:
Hold antihypertensive due to hypotension
Hyperlipidemia:
Hold statin
DVT prophylaxis:
Heparin SQ
Code status:
Full code
Total time spent on today's encounter was 36 minutes which included time spent in counseling the patient/family regarding diagnosis and treatment plan as listed above, goals of care, and symptom management. Case was discussed with nursing staff,
specialists, and care coordinators/case management. All labs and imaging personally reviewed by me. Remainder the time spent in detailed review of previous records, lab data, imaging, and other medical provider documentation.
Anticipated Discharge: Within 24 hours
Subjective/Interval History
-
Date of Service: April 30, 2025
Patient Tmax 100.7 Fahrenheit last night/early this morning. She also had some abdominal discomfort last evening as well. Abdominal symptoms improving this morning. Normal bowel movement.
Objective Data
-
Labs:
Laboratory Results
04/30/25
04:59
WBC 11.1 H
Hgb 11.9 L
Hct 36.8 L
Plt Count 362 D
PT 15.6 H
INR 1.21
Sodium 136
Potassium 3.8
Chloride 104
Carbon Dioxide 30
BUN 11
Creatinine 0.6
Glucose 106 H
Calcium 9.0
Total Bilirubin 1.0
AST 57 H
ALT 113 H
Alkaline Phosphatase 78
Vital Signs:
Vital Signs
Temp Pulse Resp BP Pulse Ox
98.0 F 102 45 175/96 96
04/30/25 07:07 04/30/25 11:01 04/29/25 10:00 04/30/25 11:01 04/30/25 10:00
I&O
04/29/25 04/30/25 05/01/25
06:59 06:59 06:59
Intake Total 1620 / 1620 50 / 50
Balance 1620 / 1620 50 / 50
[2025-04-30 12:06] LABS: Glucose - Point of Care 81 mg/dl (70-99)
[2025-04-30 15:05] LABS: Lyme Antibody Screen, EIA Negative (Negative)
--- NOTE | 2025-04-30 15:06 | PTCARENOTE ---
Report to [facility] nurse.
[2025-04-30] MEDS: BENTYL 10 MG PO (17:05)
[2025-04-30 17:20] LABS: Glucose - Point of Care 127 mg/dl (70-99)
[2025-04-30] MEDS: ORETIC 25 MG PO (17:20)
[2025-04-30] MEDS: AVAPRO 150 MG PO (17:40)
[2025-04-30] MEDS: AUGMENTIN 875 MG/125 MG 1 TABLET PO (19:34)
[2025-04-30 22:44] LABS: Glucose - Point of Care 136 mg/dl (70-99)
[2025-05-01] VITALS (8 sets, daily range): BP systolic 117–173; BP diastolic 66–108
[2025-05-01 06:55] LABS: Hematocrit 36.2 % (37.0-47.0); Hemoglobin 12.0 g/dL (12.0-16.0); Mean Corp Hgb Conc. 33.1 g/dL (33.0-37.0); Mean Corpuscular Volume 82.5 fL (81.0-99.0); Nucleated Red Blood Cells % 0 %; Platelet Count 391 10^3/uL (130-400); Red Cell Dist. Width 13.2 % (11.5-14.5)
[2025-05-01] MEDS: TYLENOL 650 MG PO ×2 (07:09→16:06)
[2025-05-01 07:19] LABS: ALT (SGPT) 84 U/L (0-35); AST (SGOT) 38 U/L (14-36); Albumin 3.4 g/dl (3.5-5.0); Alkaline Phosphatase 100 U/L (38-126); Blood Urea Nitrogen 10 mg/dl (7-17); Calcium 9.3 mg/dl (8.4-10.2); Carbon Dioxide 31 mmol/L (22-30); Chloride 100 mmol/L (98-107); Estimated Creatinine Clearance 104 ml/min; Glucose 109 mg/dl (70-99); Potassium 3.8 mmol/L (3.5-5.1); Sodium 135 mmol/L (135-145); Total Protein 6.2 g/dl (6.3-8.2); eGFR > 60.00
[2025-05-01 07:42] LABS: Glucose - Point of Care 134 mg/dl (70-99)
[2025-05-01] MEDS: NOVOLOG FLEXPEN-LOW RESISTANCE SC ×2 (08:03→14:10)
[2025-05-01] MEDS: HEPARIN SC ×2 (08:29→21:23)
[2025-05-01] MEDS: AVAPRO 150 MG PO (08:58)
[2025-05-01] MEDS: AUGMENTIN 875 MG/125 MG 1 TABLET PO ×2 (08:58→21:23)
[2025-05-01] MEDS: ORETIC 25 MG PO (08:58)
[2025-05-01] MEDS: PLAQUENIL 400 MG PO (08:59)
--- NOTE | 2025-05-01 11:14 | W.PN.HOSP.TC ---
Today's Communication/Plan
-
MRCP. HIDA scan. MRI back
Assessment / Plan
Assessment / Plan
Physical exam:
General: Acutely ill
HEENT: Normocephalic, Atraumatic and Dry Mucous Membranes
Respiratory: Clear to Auscultation; Negative Wheezes, Rales or Rhonchi
Cardiac: Regular Rhythm and S1/S2
GI: Soft, tender and Nondistended
Musculoskeletal: Midline tenderness in the thoracic area. No Clubbing, No Cyanosis and No Edema
Neuro: Awake, Alert and Oriented, no neurological deficit
Psych: Calm
A/P:
Suspected septic shock (could have been also hypovolemic shock):
GI versus ?Vaccines immune reaction. Could have been a passed stone per ID suggestion. Unlikely colitis per GI.
Seen CT scan of the abdomen and ultrasound
Continue antibiotics but transitioned IV Zosyn to Augmentin since yesterday
Off IVF
Follow-up cultures but negative so far
Check blood parasitemia and negative
Changed to n.p.o. overnight but GI changed back to clear liquid diet today--> will advance to full liquid diet today
Appreciated surgery GI and ID consults
WBC 13.7--> 8.9
Plan to do MRCP today
Plan to do HIDA scan
Plan to do probably MRI of thoracic area
CAROLYN:
Improvied and has remained stable
Off IV fluid
Avoid nephrotoxic
Monitor renal function in a.m.
Hyponatremia:
Improving
Rheumatoid arthritis:
Continue hydroxychloroquine-changed to 400 mg alternating with 200 mg every other day and she takes it at home.
Elevated LFTs:
Trending down
Continue to trend
Diabetes mellitus:
Insulin sliding scale
Hold all oral hypoglycemics
Updated hemoglobin A1c and it is 7.9
Hypertension:
Resumed antihypertensives
Hyperlipidemia:
Hold statin
DVT prophylaxis:
Heparin SQ
Code status:
Full code
Total time spent on today's encounter was 36 minutes which included time spent in counseling the patient/family regarding diagnosis and treatment plan as listed above, goals of care, and symptom management. Case was discussed with nursing staff,
specialists, and care coordinators/case management. All labs and imaging personally reviewed by me. Remainder the time spent in detailed review of previous records, lab data, imaging, and other medical provider documentation.
Anticipated Discharge: 24 - 48 hours
Subjective/Interval History
-
Date of Service: May 01, 2025
Patient complains of back pain. Her abdominal pain is improving. No nausea or vomiting. Still having fevers
Objective Data
-
Labs:
Laboratory Results
05/01/25 05/01/25
06:06 06:07
WBC 8.9
Hgb 12.0
Hct 36.2 L
Plt Count 391
Sodium 135
Potassium 3.8
Chloride 100
Carbon Dioxide 31 H
BUN 10
Creatinine 0.6
Glucose 109 H
Calcium 9.3
Total Bilirubin 1.0
AST 38 H
ALT 84 H
Alkaline Phosphatase 100
Vital Signs:
Vital Signs
Temp Pulse Resp BP Pulse Ox
97.6 F 91 16 146/95 98
05/01/25 07:35 05/01/25 07:35 05/01/25 07:35 05/01/25 07:35 05/01/25 08:10
I&O
04/30/25 05/01/25 05/02/25
06:59 06:59 06:59
Intake Total 1620 / 1620 290 / 290
Balance 1620 / 1620 290 / 290
[2025-05-01 14:08] LABS: Glucose - Point of Care 87 mg/dl (70-99)
[2025-05-01] MEDS: APRESOLINE 10 MG IV (16:07)
--- NOTE | 2025-05-01 16:35 | CM ---
Pt had HIda scan and needs Back MRI.
Advanced diet to low fat.
PT eval ordered.
Will need PT eval result for dc planning .
PLAN DC planning onging
[2025-05-01 16:51] LABS: Glucose - Point of Care 178 mg/dl (70-99)
--- NOTE | 2025-05-01 17:27 | W.PN.ID1 ---
Date of Service
Date of Service: May 01, 2025
Today's Communication
Continue current course of antibiotics. See below�
Assessment / Plan
Fever
Nausea/vomiting
Recent vaccination with COVID and flu vaccines
Leukocytosis with significant bandemia
Fatigue/malaise
Elevated LFTs
RA
DM
HTN
HLD
Fatty liver disease
Recommendations:
No clear etiology for fever and other symptomatology. ?vaccine reaction ?passed bile stone
Overall, clinically improved.
Continue Augmentin for an additional 4 days.
Continue to trend LFTs
Monitor white count and temperature curve.
����������������������������������������������������������
Chief Complaint
-: Fever and Leukocytosis
Subjective / Review of Systems
Patient seen and examined. Feeling somewhat improved today.
Vital Signs / Physical Exam
Vital Signs
Vital Signs
Temp Pulse Resp BP Pulse Ox
98.2 F 88 16 170/108 99
05/01/25 15:23 05/01/25 15:23 05/01/25 15:23 05/01/25 16:07 05/01/25 15:23
Physical Exam
Constitutional: No Acute Distress, Comfortable and Non-toxic
Eyes: Sclera Anicteric
Cardiovascular: S1/S2; Negative S3/S4
Pulmonary: Non Labored
Gastrointestinal: Soft, Non Tender, Non Distended and Normal Bowel Sounds
Extremities: Negative Edema, Cyanosis or Erythema
Neurological: Awake and Alert
Psychological: Calm
Objective Data
Lab Data
Lab Results
05/01/25 06:07
05/01/25 06:06
PT 15.6 Sec (11.4-14.6) H 04/30/25 04:59
INR 1.21 04/30/25 04:59
Estimated Creat Clear 104 ml/min 05/01/25 06:06
Lactic Acid Cancelled 04/29/25 04:00
Total Bilirubin 1.0 mg/dl (0.2-1.3) 05/01/25 06:06
AST 38 U/L (14-36) H 05/01/25 06:06
ALT 84 U/L (0-35) H 05/01/25 06:06
Alkaline Phosphatase 100 U/L (38-126) 05/01/25 06:06
Most recent labs reviewed.
Micro Results:
04/28/25 14:31 Blood Culture - Preliminary
Blood/Venous No Growth in 72 hours- Final report to follow
05/01/25 06:07 Blood Parasites Smear - Final
Blood/Venous
04/28/25 13:38 Blood Culture - Preliminary
Blood/Venous No Growth in 72 hours- Final report to follow
04/28/25 19:32 Blood Parasites Smear - Final
Blood/Venous
04/28/25 16:44 Urine Culture - Final
Urine
04/28/25 14:23 Influenza Types A & B (EDMUND) - Final
Nasal Swab Negative for Influenza A & B, NAAT
Negative results must be combined with clinical observations
and patient history.
Nucleic Acid Amplification test (NAAT)performed on the
[employer] platform.
Imaging:
04/28/2025 Abdominal ultrasound: severe diffuse hepatic steatosis. No echocardiographic evidence for cholelithiasis or biliary obstruction. Please see full dictation for additional detail.
04/28/2025 CT abdomen/pelvis with IV contrast.: Severe diffuse hepatic steatosis and mild hepatomegaly. Mild intramural edema in the gallbladder wall. Mild colitis in the ascending colon. 1.4 cm leiomyoma in the uterine fundus. Moderate
discogenic degenerative disease and facet joint arthrosis. Please see full dictation for additional detail.
[2025-05-01] MEDS: NOVOLOG FLEXPEN-LOW RESISTANCE 1 UNITS SC (17:51)
[2025-05-01 21:41] LABS: Glucose - Point of Care 163 mg/dl (70-99)
[2025-05-02 03:39] VITALS: BP 125/86
[2025-05-02 05:38] LABS: Hematocrit 36.6 % (37.0-47.0); Hemoglobin 12.1 g/dL (12.0-16.0); Mean Corp Hgb Conc. 33.1 g/dL (33.0-37.0); Mean Corpuscular Volume 82.6 fL (81.0-99.0); Nucleated Red Blood Cells % 0 %; Platelet Count 459 10^3/uL (130-400); Red Cell Dist. Width 13.2 % (11.5-14.5)
[2025-05-02 06:06] LABS: ALT (SGPT) 69 U/L (0-35); AST (SGOT) 30 U/L (14-36); Albumin 3.5 g/dl (3.5-5.0); Alkaline Phosphatase 99 U/L (38-126); Blood Urea Nitrogen 10 mg/dl (7-17); Calcium 9.3 mg/dl (8.4-10.2); Carbon Dioxide 29 mmol/L (22-30); Chloride 100 mmol/L (98-107); Estimated Creatinine Clearance 104 ml/min; Glucose 159 mg/dl (70-99); Potassium 4.2 mmol/L (3.5-5.1); Sodium 138 mmol/L (135-145); Total Protein 6.3 g/dl (6.3-8.2); eGFR > 60.00
[2025-05-02 07:05] VITALS: BP 128/88
[2025-05-02 07:11] LABS: Glucose - Point of Care 127 mg/dl (70-99)
[2025-05-02] MEDS: NOVOLOG FLEXPEN-LOW RESISTANCE SC ×3 (07:24→16:41)
[2025-05-02] MEDS: ORETIC 25 MG PO (08:38)
[2025-05-02] MEDS: AUGMENTIN 875 MG/125 MG 1 TABLET PO ×2 (08:38→20:39)
[2025-05-02] MEDS: PLAQUENIL 200 MG PO (08:39)
[2025-05-02] MEDS: HEPARIN SC ×2 (08:39→20:39)
[2025-05-02] MEDS: AVAPRO 150 MG PO (08:39)
--- NOTE | 2025-05-02 09:03 | PTOTSP ---
Chart reviewed. patient received walking independently in the hallway while talking on the phone. Patient observed independently sitting and rising from bed. Spoke to patient. Educated patient on the role of PT in the hospital setting. Reviewed
home set up with patient. Inquired about patient's ability to successfully function at home with stairs and ADLs. patient voiced that she had no concerns about being about to complete stairs and other functional ADLs. Patient declined the need
for skilled services at this time. Patient left discussion to continue to walk in the hallways. At this time, will sign off. Patient is not in need of skilled PT.
--- NOTE | 2025-05-02 10:20 | W.PN.HOSP.TC ---
Today's Communication/Plan
-
Discharge planning today pending MRI
Assessment / Plan
Assessment / Plan
Physical exam:
General: No acute distress
HEENT: Normocephalic, Atraumatic and Dry Mucous Membranes
Respiratory: Clear to Auscultation; Negative Wheezes, Rales or Rhonchi
Cardiac: Regular Rhythm and S1/S2
GI: Soft, tender and Nondistended
Musculoskeletal: Midline tenderness in the thoracic area. No Clubbing, No Cyanosis and No Edema
Neuro: Awake, Alert and Oriented, no neurological deficit
Psych: Calm
A/P:
Suspected septic shock:
GI versus ?Vaccines immune reaction. Could have been a passed stone per ID suggestion. Unlikely colitis per GI.
Patient improved substantially
Remains afebrile
Plan to discharge today if rest of the workup unremarkable
Prior to today:
Seen CT scan of the abdomen and ultrasound
Continue antibiotics but transitioned IV Zosyn to Augmentin since yesterday
Off IVF
Follow-up cultures but negative so far
Check blood parasitemia and negative
Changed to n.p.o. overnight but GI changed back to clear liquid diet today--> will advance to full liquid diet today
Appreciated surgery GI and ID consults
WBC 13.7--> 8.9--> 10.2
MRCP negative, HIDA scan negative.
Pending MRI thoracic and lumbar area
CAROLYN:
Improvied and has remained stable
Off IV fluid
Avoid nephrotoxic
Monitor renal function in a.m.
Hyponatremia:
Improving
Rheumatoid arthritis:
Continue hydroxychloroquine-changed to 400 mg alternating with 200 mg every other day and she takes it at home.
Elevated LFTs:
Trending down
Continue to trend
Diabetes mellitus:
Insulin sliding scale
Hold all oral hypoglycemics
Updated hemoglobin A1c and it is 7.9
Hypertension:
Resumed antihypertensives
Hyperlipidemia:
Hold statin
DVT prophylaxis:
Heparin SQ
Code status:
Full code
Total time spent on today's encounter was 35 minutes which included time spent in counseling the patient/family regarding diagnosis and treatment plan as listed above, goals of care, and symptom management. Case was discussed with nursing staff,
specialists, and care coordinators/case management. All labs and imaging personally reviewed by me. Remainder the time spent in detailed review of previous records, lab data, imaging, and other medical provider documentation.
Anticipated Discharge: Today
Subjective/Interval History
-
Date of Service: May 02, 2025
Patient doing well. Afebrile
Objective Data
-
Labs:
Laboratory Results
05/02/25
05:08
WBC 10.2
Hgb 12.1
Hct 36.6 L
Plt Count 459 H
Sodium 138
Potassium 4.2
Chloride 100
Carbon Dioxide 29
BUN 10
Creatinine 0.5 L
Glucose 159 H
Calcium 9.3
Total Bilirubin 0.8
AST 30
ALT 69 H
Alkaline Phosphatase 99
Vital Signs:
Vital Signs
Temp Pulse Resp BP Pulse Ox
98.3 F 74 18 128/88 97
05/02/25 07:05 05/02/25 08:38 05/02/25 07:05 05/02/25 08:38 05/02/25 07:05
I&O
05/01/25 05/02/25 05/03/25
06:59 06:59 06:59
Intake Total 290 / 290 1440 / 1440
Balance 290 / 290 1440 / 1440
[2025-05-02 11:12] VITALS: BP 116/73
[2025-05-02 11:48] LABS: Glucose - Point of Care 129 mg/dl (70-99)
[2025-05-02 15:28] VITALS: BP 119/82
[2025-05-02 16:36] LABS: Glucose - Point of Care 140 mg/dl (70-99)
[2025-05-02 19:48] VITALS: BP 114/79
[2025-05-02 21:46] LABS: Glucose - Point of Care 153 mg/dl (70-99)
[2025-05-02 23:14] VITALS: BP 120/84
[2025-05-03 03:22] VITALS: BP 122/81
[2025-05-03 07:03] LABS: Glucose - Point of Care 142 mg/dl (70-99)
[2025-05-03 07:45] VITALS: BP 139/88
[2025-05-03] MEDS: NOVOLOG FLEXPEN-LOW RESISTANCE SC ×2 (07:48→11:28)
[2025-05-03] MEDS: AVAPRO 150 MG PO (09:14)
[2025-05-03] MEDS: ORETIC 25 MG PO (09:15)
[2025-05-03] MEDS: HEPARIN SC (09:16)
[2025-05-03] MEDS: PLAQUENIL 400 MG PO (09:16)
[2025-05-03] MEDS: AUGMENTIN 875 MG/125 MG 1 TABLET PO (09:16)
--- NOTE | 2025-05-03 10:50 | W.PN.HOSP.TC ---
Today's Communication/Plan
-
Discharge planning today
Assessment / Plan
Assessment / Plan
Physical exam:
General: No acute distress
HEENT: Normocephalic, Atraumatic and Dry Mucous Membranes
Respiratory: Clear to Auscultation; Negative Wheezes, Rales or Rhonchi
Cardiac: Regular Rhythm and S1/S2
GI: Soft, non tender and Nondistended
Musculoskeletal: Midline tenderness in the thoracic area. No Clubbing, No Cyanosis and No Edema
Neuro: Awake, Alert and Oriented, no neurological deficit
Psych: Calm
A/P:
Suspected septic shock:
GI versus ?Vaccines immune reaction. Could have been a passed stone per ID suggestion. Unlikely colitis per GI.
Patient improved substantially
Remains afebrile
All infectious workup unremarkable
Plan to discharge today
Prior to today:
Seen CT scan of the abdomen and ultrasound
Continue antibiotics but transitioned IV Zosyn to Augmentin since yesterday
Off IVF
Follow-up cultures but negative so far
Check blood parasitemia and negative
Changed to n.p.o. overnight but GI changed back to clear liquid diet today--> will advance to full liquid diet today
Appreciated surgery GI and ID consults
WBC 13.7--> 8.9--> 10.2
MRCP negative, HIDA scan negative.
Pending MRI thoracic and lumbar area
CAROLYN:
Improvied and has remained stable
Off IV fluid
Avoid nephrotoxic
Monitor renal function in a.m.
Hyponatremia:
Improving
Rheumatoid arthritis:
Continue hydroxychloroquine-changed to 400 mg alternating with 200 mg every other day and she takes it at home.
Elevated LFTs:
Trending down
Continue to trend
Diabetes mellitus:
Insulin sliding scale
Hold all oral hypoglycemics
Updated hemoglobin A1c and it is 7.9
Hypertension:
Resumed antihypertensives
Hyperlipidemia:
Hold statin
DVT prophylaxis:
Heparin SQ
Code status:
Full code
Total time spent on today's encounter was 35 minutes which included time spent in counseling the patient/family regarding diagnosis and treatment plan as listed above, goals of care, and symptom management. Case was discussed with nursing staff,
specialists, and care coordinators/case management. All labs and imaging personally reviewed by me. Remainder the time spent in detailed review of previous records, lab data, imaging, and other medical provider documentation.
Anticipated Discharge: Today
Subjective/Interval History
-
Date of Service: May 03, 2025
No nausea vomiting diarrhea. Afebrile
Objective Data
-
Vital Signs:
Vital Signs
Temp Pulse Resp BP Pulse Ox
97.5 F 70 17 139/88 98
05/03/25 07:45 05/03/25 07:45 05/03/25 07:45 05/03/25 07:45 05/03/25 07:45
I&O
05/02/25 05/03/25 05/04/25
06:59 06:59 06:59
Intake Total 1440 / 1440 1080 / 1080
Balance 1440 / 1440 1080 / 1080
[2025-05-03 11:27] VITALS: BP 119/87
--- NOTE | 2025-05-03 11:30 | W.DCSUMMARY ---
Discharge Summary
Discharge Data
Date of Admission: 04/28/25
Date of Discharge: 05/03/25
Total time spent discharging patient (in min): 35
-
Pending Results: No
Hospital Course
Patient 50 years old female with history of rheumatoid arthritis, diabetes mellitus, presented to the hospital with sepsis of unclear source. Patient had received influenza and COVID-19 vaccinations a few days prior to her presentation and she
presented with hypotension nausea vomiting abdominal pain and fevers. Surgery consulted and they did not feel the gallbladder was contributing to her presentation. She also had a HIDA scan that was negative subsequently. CT scan raised concerns
for colitis. She also had elevated liver function test. GI was consulted and felt less likely colitis and they felt she can follow-up as outpatient for any possible scopes. ID was consulted as well. ID felt that etiology was not clear either but
possibility of passed stone in the biliary tract or vaccinations or other. Patient was treated with IV antibiotics and white blood cell count trending down back to normal and she became hemodynamically stable. ID recommended to switch to oral
antibiotics for a short course. Her cultures remain negative. She also had an MRCP with fatty liver disease and some other chronic findings but no other acute abnormalities. She does follow-up with practical nursing faculty and will continue to follow-up as
outpatient. Her LFTs are trending down appropriately. She did have a thorough infectious workup that was mostly unremarkable. She also had thoracic and lumbar MRI done.
Discharge duration: 35 minutes
Discharge Plan
-
Patient Disposition: Home (Routine Discharge)
Discharge Diagnosis/Procedures: Septic shock, resolved. Febrile illness of unclear etiology. Elevated liver function test. History of rheumatoid arthritis. History of fatty liver disease.
Diet: Diabetic, Carb Controlled
Activity: As tolerated
Blood Work: Please PCP to order CBC, CMP within 1 week
Referrals:
Queenie Coley, [Family Provider, Internal Medicine] - in less than 1 week
Prescriptions:
New
amoxicillin-pot clavulanate 875-125 mg Tablet
1 tab PO Q12 2 Days Qty: 4 0RF
Continued
Hydroxychloroquine
200 mg PO DAILY
metformin 500 MG tablet
500 mg PO BID@0800,1700
hydrochlorothiazide 25 MG tablet
25 mg PO DAILY
irbesartan 150 mg Tablet
150 mg PO DAILY
Held
atorvastatin 10 mg Tablet
10 mg PO DAILY
Hold Instructions: Resume on 05/06/25.
Discharge Orders:
Discharge Patient (As Directed); Ordered 05/03/25
Ordered By: Ulises Lujan
Discharge Date and Time
Print Language: BELIZEAN
== END 2025-05-03 11:59 | disposition home or self-care (01) | DRG 871 ==
LOC: 4 EAST ACU 19:47
PROVIDERS: Clinical Nurse Specialist Family Health; ADMITTING PHYSICIAN Hospitalist; ATTENDING PHYSICIAN Hospitalist; CONSULT PHYSICIAN Internal Medicine; CONSULT PHYSICIAN Internal Medicine Infectious Disease; CONSULT PHYSICIAN Surgery; EMERGENCY PHYSICIAN Emergency Medicine; FAMILY PHYSICIAN Internal Medicine
DX: A41.9 Sepsis, unspecified organism (principal); R57.1 Hypovolemic shock; R65.21 Severe sepsis with septic shock; K81.0 Acute cholecystitis; N17.9 Acute kidney failure, unspecified; E87.1 Hypo-osmolality and hyponatremia; M06.9 Rheumatoid arthritis, unspecified; E11.9 Type 2 diabetes mellitus without complications; Z79.84 Long term (current) use of oral hypoglycemic drugs; I10 Essential (primary) hypertension; Z79.899 Other long term (current) drug therapy; Z11.52 Encounter for screening for COVID-19
CPT/HCPCS: 71046; 72157; 72158; 74177; 74183; 76700; 78226; 80053; 80061; 81003; 81015; 82962; 83036; 83605; 83690; 84703; 85025; 85610; 86618; 86705; 86706; 86709; 86803; 87015; 87040; 87086; 87207; 87340; 87468; 87484; 87502; 87798; 87811; 96361; 96365; 96375; 99285; A9537; A9575; Q9967